=== PATIENT | female | born 1955 | race Caucasian/White ===

== ENCOUNTER 2023-09-12 11:21 | Emergency (ER) | payer MEDICARE, OTHER ==
[2023-09-12 12:04] VITALS: TEMP 96.8
--- NOTE | 2023-09-12 12:25 | ERPHSYRPT ---
- History of Present Illness Time Seen by Provider: 09/12/23 12:00 Source: patient Exam Limitations: no limitations Patient Subjective Stated Complaint: Pt states "I thought I had sciatica pain in my left leg but for the past two days my left leg has been going out on me. My left leg hurts in my groin and down to my knee." Triage Nursing Assessment: Pt presented alert and oriented x 3, skin wpd. Pt ambulates with a slow gait, able to speak in clear full sentences. PT resting comfortably on the bed. Physician History: 68-year-old female with a history of sciatica now presents to our ED with pain in her left hip. Pain is at the lateral aspect of her left hip and radiates medially into her groin area. Pain described as an ache that is constant. Pain worse with weightbearing and palpation. Pain improved with rest. No trauma no fever. No nausea vomiting or diaphoresis. Symptoms are progressive. Symptoms are moderate in intensity. No associated chest pain or shortness of breath. No low back pain. Patient voices no other complaints or concerns at this time. Method of Injury: unknown Occurred: other (Pain for the last several days) Quality: aching (Worse with weightbearing) Severity of Pain-Max: moderate Severity of Pain-Current: mild Lower Extremities Pain: hip: left Modifying Factors: Improves With: movement Associated Symptoms: none Allergies/Adverse Reactions: No Known Drug Allergies Allergy (Verified 09/12/23 12:04) Home Medications: Magnesium 200 mg PO DAILY 09/12/23 [History] Multivit-Min/Iron Fum/Folic AC [Multivitamin-Minerals Tablet] 1 each PO DAILY 09/12/23 [History] Hx Tetanus, Diphtheria Vaccination/Date Given: No Hx Influenza Vaccination/Date Given: No Hx Pneumococcal Vaccination/Date Given: No Immunizations Up to Date: No Travel Risk - International Travel Have you traveled outside of the country in past 3 weeks: No - Emerging Infectious Disease Are you exhibiting symptoms associated with any current EIDs: No - Review of Systems Constitutional: No Symptoms, No Fever, No Chills Eyes: No Symptoms Ears, Nose, & Throat: No Symptoms Respiratory: No Symptoms, No Cough, No Dyspnea Cardiac: No Symptoms, No Chest Pain, No Edema, No Syncope Abdominal/Gastrointestinal: No Symptoms, No Abdominal Pain, No Nausea, No Vomiting, No Diarrhea Genitourinary Symptoms: No Symptoms, No Dysuria Musculoskeletal: No Symptoms, No Back Pain, No Neck Pain Skin: No Symptoms, No Rash Neurological: No Symptoms, No Dizziness, No Focal Weakness, No Sensory Changes Psychological: No Symptoms Endocrine: No Symptoms Hematologic/Lymphatic: No Symptoms Immunological/Allergic: No Symptoms All Other Systems: Reviewed and Negative - Past Medical History Pertinent Past Medical History: Yes Neurological History: Other Cardiac History: Coronary Artery Disease Respiratory History: No Pertinent History Endocrine Medical History: No Pertinent History Musculoskeletal History: No Pertinent History Other Medical History: PMH: [facility] 5-6 YEARS AGO,. PSH: NONE - Past Surgical History Past Surgical History: No - Social History Smoking Status: Current every day smoker How long have you smoked: years Exposure to second hand smoke: Yes Drug Use: none - Social Determinants of Health Will the patient participate in the screening: Yes Do you worry about a steady place to live?: No Do you have any problems with any of the following?: Pest (bugs,ants,or mice) In the past 12 months,have you had to go without utilities?: No Transportation Issues: No Has anyone in your support network made you feel unsafe?: No Have you or anyone in your house had to go without enough: No - Nursing Vital Signs Nursing Vital Signs: Initial Vital Signs Pulse Rate 75 09/12/23 11:50 Respiratory Rate 8 L 09/12/23 11:50 Blood Pressure 176/96 09/12/23 11:50 O2 Sat by Pulse Oximetry 97 09/12/23 11:50 Pain Scale Pain Intensity 0 - Physical Exam General Appearance: no apparent distress, alert Eyes, Ears, Nose, Throat Exam: moist mucous membranes Neck Exam: non-tender, supple Cardiovascular/Respiratory Exam: chest non-tender, normal breath sounds, regular rate/rhythm, no respiratory distress Gastrointestinal/Abdominal Exam: non-tender, soft, guarding Back Exam: normal inspection, normal range of motion, No vertebral tenderness Hips Exam: left: non-tender (Left lateral hip tenderness. No pain with small arcs of motion), other Legs Exam: bilateral leg: non-tender, normal inspection, normal range of motion, no evidence of injury Knees Exam: bilateral knee: non-tender, normal inspection, normal range of motion, no evidence of injury Ankle Exam: bilateral ankle: non-tender, normal inspection, normal range of motion, no evidence of injury Foot Exam: bilateral foot: non-tender, normal inspection, normal range of motion, no evidence of injury Neuro/Tendon Exam: normal sensation, normal motor functions Mental Status Exam: alert, oriented x 3, cooperative Skin Exam: normal color, warm, dry SpO2 Interpretation: normal SpO2: 97 O2 Delivery: Room Air - Course Nursing assessment & vital signs reviewed: Yes Ordered Tests: Active Orders 24 hr Category Date Time Status LOWER EXTREMITY WO CONTRAST [CT] Stat Exams 09/12/23 12:18 Completed - Progress Progress: improved Progress Note: 60-year-old female with left lateral hip pain. No obvious trauma. Pain worse with weightbearing. No pain with small arcs of motion. Patient afebrile. CT left hip nonremarkable. Patient resting comfortably. Patient referred to orthopedics for follow-up. Portions of this note were created with voice recognition technology. There may be grammatical, spelling, punctuation or sound alike errors Complexity problem addressed is moderate acute complicated. No critical care time. Complex of data reviewed and analyzed is moderate. Test ordered test reviewed results analyzed and correlated clinically with history and physical exam. Risk of complication and or risk of morbidity/mortality patient management is low. Vital stable. Time spent to discharge patient approximately 20 minutes. Plan of care established for shared decision making. No social determinants of health present impede follow-up. Portions of this note were created with voice recognition technology. There may be grammatical, spelling, punctuation or sound alike errors 09/12/23 13:51 09/12/23 13:53 Counseled pt/family regarding: diagnosis, need for follow-up - Departure Departure Disposition: Home Clinical Impression: Left hip pain Condition: Stable Critical Care Time: No Referrals: GAGE THOMSON NP [Primary Care Provider] - Follow up/PCP as directed Additional Instructions: Discharge/Care Plan XANDER JIANG was seen on 09/12/23 in the Emergency Room. The patient was counseled regarding Diagnosis,Lab results, Imaging studies, need for follow up and when to return to the Emergency Room. Prescriptions given: Discharge Note I have spoken with the patient and/or caregivers. I have explained the patient's condition, diagnosis and treatment plan based on the information available to me at this time. I have answered the patient's and/or caregiver's questions and addressed any concerns. The patient and/or caregivers have as good understanding of the patient's diagnosis, condition and treatment plan as can be expected at this point. The vital signs have been stable. The patient's condition is stable and appropriate for discharge from the emergency department. The patient will pursue further outpatient evaluation with the primary care physician or other designated or consulting physician as outlined in the discharge instructions. The patient and/or caregivers are agreeable to this plan of care and follow-up instructions have been explained in detail. The patient and/or caregivers have received these instruction. The patient/and or caregivers are aware that any significant change in condition or worsening of symptoms should prompt an immediate return to this or the closest emergency department or call 911.
--- NOTE | 2023-09-12 13:24 | XRAY ---
Indication: Pain. No known injury. Multiple contiguous axial images obtained through the left hip. Sagittal and coronal reformatted images obtained. Comparison: None No acute fracture, dislocation, or suspicious bony lesions. Visualized noncontrasted soft tissues demonstrates minimal arteriosclerotic calcifications. No suspicious solid cystic soft tissue mass or abnormal fluid collection. Impression: Normal CT left hip.
[2023-09-12] MEDS ORDERED: TORAdol 30 mg Injection ONE (13:49)
[2023-09-12] MEDS: TORAdol 30 mg Injection IM ONE (13:50)
[2023-09-12 13:51] VITALS: BP 132/82; PULSE 89; RESP 12
[2023-09-12 13:53] VITALS: O2SAT 97
== END 2023-09-12 13:57 | disposition home or self-care (01) ==
LOC: ED 11:21
DX: M25.552 Pain in left hip (principal); Z72.0 Tobacco use; Z59.19 Other inadequate housing
CPT/HCPCS: 73700; 96372; 99283; J1885